=== PATIENT | male | born 1985 ===

== ENCOUNTER 2020-01-29 20:05 | Emergency (ER) | payer OTHER ==
[~2020-01-29] VITALS: Ht 182.9 cm; Wt 70.3 kg
== END 2020-01-29 23:40 | disposition home or self-care (01) ==
LOC: ER 20:05
DX: S01.112A Laceration without foreign body of left eyelid and periocular area, initial encounter (principal); F17.210 Nicotine dependence, cigarettes, uncomplicated; Z23 Encounter for immunization; Y04.2XXA Assault by strike against or bumped into by another person, initial encounter
CPT/HCPCS: 12011; 70450; 90471; 99284-25; A9270